=== PATIENT | male | born 1950 | race Caucasian/White ===

== ENCOUNTER → 2016-09-16 | Outpatient (CLI) | payer MEDICARE, BC, SELFPAY | PROVIDERS: Visit Provider Internal Medicine | DX: N39.0 Urinary tract infection, site not specified (principal); N40.0 Benign prostatic hyperplasia without lower urinary tract symptoms | CPT/HCPCS: 87086; 87088; 87186 ==

== ENCOUNTER 2018-01-05 10:50 | Outpatient (CLI) | payer MEDICARE, OTHER, SELFPAY ==
[2018-01-05 12:05] VITALS: BP 127/77; PULSE 95; RESP 18; TEMP 36.5; O2SAT 98
== END 2018-01-05 12:21 | disposition home or self-care (01) ==
LOC: INF 10:53
PROVIDERS: PCP Internal Medicine; Visit Provider Internal Medicine
DX: D75.1 Secondary polycythemia (principal)
CPT/HCPCS: 99195

== ENCOUNTER → 2018-08-11 12:53 | Outpatient (CLI) | payer MEDICARE, OTHER, SELFPAY ==
--- NOTE | 2018-08-11 12:57 | CT_ITS ---
CT soft tissue neck wo con INDICATION: ITS.REASON: EDEMA, LT PAROTIS PAIN ORDERING PHYSICIAN: Aneudy Montelongo PATIENT AGE: 67 years COMPARISON: None TECHNIQUE: Axial images are obtained without contrast. Sagittal and coronal reformatted images are reviewed as well. All CT scans at the facility use one or more dose reduction, viz: automated exposure control, ma/kV adjustment per patient size (including targeted exams where dose is matched to indication, i.e. head), or iterative reconstruction technique. FINDINGS: A BB is placed over the area of pain and tenderness in the left neck.. Study is limited without IV contrast. No obvious parotid mass is evident. BB is placed along the left neck laterally corresponding to an area of slightly prominent fat suggesting a small lipoma. No suspicious soft tissue mass or adenopathy is evident in this region. There are scattered small lymph nodes in the neck but no dominant adenopathy. No abnormal fluid collections. The nasopharynx has an unremarkable appearance. There is slight asymmetric increased density in the left parapharyngeal region of the oropharynx at the level of the uvula. This is of questioned clinical significance. The glottic and epiglottic region and subglottic region have an unremarkable appearance. There is prominence of the isthmus of the thyroid gland with a nodular lesion involving the central aspect of the isthmus at 16 mm. Ultrasound suggested for further evaluation. There are postsurgical changes of the cervical spine with prior anterior cervical disc fusion at C4 C5 C6 and C7 with good alignment. IMPRESSION: 1. No obvious parotid mass. 2. A BB is placed along the left side of the neck at the area of pain and tenderness. There is slight increased prominence of the fat in this region suggesting lipoma. 3. 16 mm nodule obvious mass of the thyroid gland. Recommend ultrasound for further evaluation
== END ==
PROVIDERS: PCP Internal Medicine; Visit Provider Internal Medicine
DX: R22.1 Localized swelling, mass and lump, neck (principal)
CPT/HCPCS: 70490

== ENCOUNTER → 2018-09-07 12:56 | Outpatient (CLI) | payer MEDICARE, OTHER, SELFPAY ==
--- NOTE | 2018-09-07 12:59 | US_ITS ---
US thyroid HISTORY: ITS.REASON: THYROID NODULE ORDERING PHYSICIAN: Aneudy Montelongo PATIENT AGE: 67 years Comparison: None FINDINGS: The right lobe is 4.6 x 1.7 x 2.2 cm. A 6 mm isoechoic nodule present in the upper pole on the right. The left lobe is 4.5 x 1.8 x 1.7 cm. There is a 7 mm isoechoic nodule in the upper pole. The isthmus is thickened at 6 mm however, no definite isthmus nodules demonstrated. IMPRESSION: Enlarged thyroid gland with small bilateral nodules probably benign. Six-month follow-up may confirm stability
== END ==
PROVIDERS: PCP Internal Medicine; Visit Provider Internal Medicine
DX: E04.1 Nontoxic single thyroid nodule (principal)
CPT/HCPCS: 76536

== ENCOUNTER → 2019-11-14 08:45 | Outpatient (CLI) | payer MEDICARE, OTHER, SELFPAY ==
[2019-11-14 11:10] LABS: Coronavirus 19 IgG Antibody Negative (Negative); Coronavirus 19 IgM Antibody Negative (Negative)
== END ==
PROVIDERS: Visit Provider Surgery
DX: Z20.828 Contact with and (suspected) exposure to other viral communicable diseases (principal)
CPT/HCPCS: 36415; 86328

== ENCOUNTER 2019-11-15 09:33 | Day surgery (SDC) | payer MEDICARE, OTHER, SELFPAY ==
[2019-11-10 14:24] VITALS: BMI 35.7
[2019-11-15] VITALS (7 sets, daily range): BP systolic 99–137; BP diastolic 63–90; PULSE 73–97; RESP 16–18; TEMP 36.2–36.6; O2SAT 90–97
--- NOTE | 2019-11-15 10:51 | HMH.ANESCL ---
[facility] Anesthesia Checklist - Patient Identification Patient Identification: Arm Band, Verbal (Name & ) - Structural Data Admitted From: Home Planned Operative Procedure/s: colon Consent for Planned Operative Procedure(s) Verified: Yes Verified Documents: History and Physical - NPO Status Verified Time NPO: 00:00 - Additional verifications Patient : No Anesthesia Reactions: No Hx Blood Transfusions: No Blood Transfusion Reaction: No Cephalosporin Allergy: No Previous Colonoscopy: Yes - Cardiovascular Assessment Heart Sounds: S1 & S2 Pulse Strength: Baseline Pulse Rhythm: Regular Peripheral Edema: No - Airway Assessment C-Spine Mobility Assessed: Yes TMJ Mobility Assessed: Yes Dentition: Partials - Neurological Assessment Level of Consciousness: Awake, Alert, Appropriate Hx Seizures: No Numbness or tingling in extremities: No - Anesthesia Plan Anesthesia Risk discussed: Yes Anesthesia Plan: Verified ASA Class: II Anesthesia Type: MAC [facility] History I have reviewed the patient's past medical history: Yes Medical History: Reports:: Hypertension, Kidney Stones, Renal Disease Denies:: Cancer, Diabetes Mellitus Type 1, Diabetes Mellitus Type 2, Internal Pacemaker, Lung Disease, MRSA, Seizures *Have you ever received a pneumonia vaccine?: Yes *Have you received a flu vaccine this season?: Yes Other Medical History: Reports: Other Anesthesia experience/problems:: none Other Surgeries: Yes: Colonoscopy, Other. No: Pacemaker Amputation: No Fractures: No - *Social History Last grade of school completed: High school graduate Smoking Status: Former smoker Tobacco Type: cigarettes #Yrs smoked (if former smoker): 40 Alcohol Intake: never Alcohol Intake Frequency:: holidays/special occasions only Substance Use Type: denies use *Occupational Status:: retired Housing: house Household Members: spouse *Travel in the last 8 weeks: None Family Hx:: Unable to obtain
--- NOTE | 2019-11-15 11:51 | HMH.SCOPE ---
- Procedure: Date: 11/15/19 Patient Date of :: 1950 Procedure Performed:: Total colonoscopy with polypectomy by biopsy, polypectomy via snare, and colon biopsies Indications:: Patient presents for follow-up colonoscopy. He is a 69-year-old male. He has a very strong family history of colon cancer with multiple siblings having colon cancer as well as several maternal aunts. He states that his mother had colon cancer and he has 4 sisters who had colon cancer. Also, apparently, he had a brother with liver cancer. He has prior adenomatous polyps on previous colonoscopies. I had performed colonoscopy on him in January 2018. He did have a tubular adenoma in the sigmoid colon. There was some subtle irregular nodularity within the cecum and this was biopsied and this actually returned as sessile serrated adenoma. Repeat colonoscopy in January 2019 revealed at least a couple of sessile serrated adenomas including 1 in the cecum and ascending colon as well as 5 tubular adenomas. He also was found to have some anal stenosis. He has had some fecal urgency. Due to the extremely strong family history of colon cancer with early interval development of multiple precancerous polyps I had planned for follow-up colonoscopy 6 months after his last colonoscopy. Performing Provider:: Anton Evans MD Referring Provider:: None Sedation:: MAC sedation Procedure:: Patient was taken to endoscopy procedure room. He was positioned in a lateral decubitus position. Adequate intravenous sedation was achieved. Digital examination was performed which revealed no appreciable anal stenosis. Variable stiffness Olympus colonoscope was inserted via the anus. It was advanced to the cecum with some minor difficulty due to floppiness and tortuosity of the sigmoid colon. Ileocecal valve and appendiceal orifice were clearly identified. There is some minor mucosal nodularity within the appendiceal orifice and a couple cold biopsies were obtained. Colonoscope was withdrawn through the colon with careful surveillance. There was diminutive polyp in the proximal transverse colon removed with cold biopsy forceps. In the ascending colon there were a couple of small polyps removed with cold biopsy forceps. In the transverse colon there were multiple nodules consistent with lymphoid nodules. Biopsies were obtained. In the descending colon there was a polyp removed with cold cutting snare. Proximal sigmoid revealed a polyp removed with biopsy forceps. In the rectum there was possible flat sessile polyp which was initially biopsied and then removed with cold cutting snare. Retroflexion within the rectum revealed no evidence of any pathologic internal hemorrhoids. Colonoscope was withdrawn. Findings:: Anal stenosis Appendiceal mucosal nodularity Proximal transverse colon polyp removed with cold biopsy Ascending colon polyp x2 removed with cold biopsy Transverse colon nodularity consistent with lymphoid nodules biopsied Descending colon polyp removed with cold cutting snare Proximal sigmoid polyp removed with biopsy Probable rectal polyp removed with biopsy followed by cold cutting snare Recommendations:: Pending the pathology likely repeat colonoscopy 1 year. However, if the transverse colon biopsies of the nodularity, presumed to be lymphoid nodules, or if the appendiceal lesions are adenomatous may require earlier colonoscopy. Complications:: None immediately apparent Estimated blood obtained (mL): 2
== END 2019-11-15 12:35 | disposition home or self-care (01) ==
LOC: OUTP 09:35
PROVIDERS: PCP Internal Medicine; Visit Provider Surgery
PROC: 0DJD8ZZ Inspection of Lower Intestinal Tract, Via Natural or Artificial Opening Endoscopic (ICD-10-PCS; CPT 45378; principal; 2019-11-15 10:30)
DX: Z12.11 Encounter for screening for malignant neoplasm of colon (principal); K62.4 Stenosis of anus and rectum; K63.5 Polyp of colon; K63.89 Other specified diseases of intestine; Z80.0 Family history of malignant neoplasm of digestive organs; Z86.010 Personal history of colon polyps; Z87.19 Personal history of other diseases of the digestive system; I10 Essential (primary) hypertension; N28.9 Disorder of kidney and ureter, unspecified; Z87.442 Personal history of urinary calculi; Z79.899 Other long term (current) drug therapy
CPT/HCPCS: 45380; 45385; 88305

== ENCOUNTER → 2020-07-26 09:21 | Outpatient (CLI) | payer MEDICARE, OTHER, SELFPAY ==
[2020-07-26 09:33] LABS: Adenovirus F 40/41, stool Not Detected (NotDetected); Astrovirus Not Detected (NotDetected); Campylobacter Not Detected (NotDetected); Clostridium Difficile A/B, PCR Not Detected (NotDetected); Cryptosporidium Not Detected (NotDetected); Cyclospora Cayetanesis Not Detected (NotDetected); Entamoeba histolytica Not Detected (NotDetected); Enteroaggregative E coli Not Detected (NotDetected); Enteropathogenic E coli Not Detected (NotDetected); Enterotoxigenic E coli Not Detected (NotDetected); Giardia lamblia Not Detected (NotDetected); Norovirus Not Detected (NotDetected); Plesimonas Shigalloides, PCR Not Detected (NotDetected); Rotavirus A Not Detected (NotDetected); Salmonella, PCR Not Detected (NotDetected); Sapovirus Not Detected (NotDetected); Shiga-like toxin E coli Not Detected (NotDetected); Shigella Enterovasive E coli Not Detected (NotDetected); Vibrio Cholerae Not Detected (NotDetected); Vibrio, PCR Not Detected (NotDetected); Yersinia Entercolitica, PCR Not Detected (NotDetected)
== END ==
PROVIDERS: Visit Provider Internal Medicine
DX: R19.7 Diarrhea, unspecified (principal)
CPT/HCPCS: 87205; 87506

== ENCOUNTER → 2020-10-30 16:06 | Outpatient (POV) | payer MEDICARE, OTHER, SELFPAY | PROVIDERS: Visit Provider Dermatology | DX: Z00.00 Encounter for general adult medical examination without abnormal findings (principal) ==

== ENCOUNTER → 2021-01-30 15:15 | Outpatient (CLI) | payer MEDICARE, OTHER, SELFPAY ==
[2021-01-30 15:55] LABS: Basophils # 0.1 K/mm3 (0-0.2); Basophils % 1.2 % (0.1-2.0); Eosinophils # 0.3 K/mm3 (0.0-0.4); Eosinophils % 4.3 % (0.1-12.0); Hematocrit 52.2 % (42.0-52.0); Hemoglobin 17.2 g/dL (14.1-18.0); Lymphocytes # 1.8 K/mm3 (0.7-4.5); Lymphocytes % 28.5 % (10-50); Mean Corpuscular Hemoglobin 30.5 pg (27.0-31.2); Mean Corpuscular Volume 92.4 fl (80-94); Mean Platelet Volume 9.8 fl (7.4-10.4); Monocytes # 0.6 K/mm3 (0.1-1.0); Monocytes % 8.8 % (1.7-9.3); Neutrophils # 3.6 K/mm3 (1.8-7.8); Neutrophils % 57.1 % (37.0-80.0); Platelet Count 198 K/mm3 (142-424); Red Blood Count 5.66 M/mm3 (4.60-6.20); Red Cell Distribution Width 13.9 % (11.5-17.5); White Blood Count 6.2 K/mm3 (4.8-10.8)
[2021-01-30 16:00] LABS: Chloride 105 mmol/L (98-107); Potassium 4.6 mmoL/L (3.5-5.1); Sodium 138 mmol/L (136-145)
[2021-01-30 16:02] LABS: Alanine Aminotransferase 36 U/L (12-78); Alkaline Phosphatase 112 U/L (38-126); Aspartate Amino Transferase 43 U/L (17-59); Bilirubin,Total 1.4 mg/dl (0.2-1.3); Blood Urea Nitrogen 27 mg/dl (9-20); Estimated Glomerular Filt Rate 43 ml/min (>60); GFR (African American) 52 ML/MIN (>60)
[2021-01-30 16:03] LABS: Albumin Level 4.1 g/dl (3.5-5.0); Albumin/Globulin Ratio 2.1 (1.1-1.8); Anion Gap 12.6 mEq/L (5-15); Calcium 9.6 mg/dl (8.4-10.2); Carbon Dioxide 25 mmol/L (22.0-30.0); Chol/HDL Ratio 5.3 (1-3.5); Cholesterol 159 mg/dl (140-200); Glucose 102 mg/dl (74-100); HDL Cholesterol 30 mg/dl (40-60); Total Protein,Serum 6.1 g/dl (6.3-8.2); Triglycerides 185 mg/dl (30-150); VLDL Cholesterol 37 mg/dL (0-40)
[2021-01-30 16:14] LABS: Direct LDL Cholesterol 100.53 mg/dL (100-129)
[2021-01-30 16:23] LABS: Uric Acid 4.5 mg/dl (3.5-8.5)
[2021-01-30 16:55] LABS: Prostate Specific Ag Screen 0.7 ng/ml (0.0-4.0)
== END ==
PROVIDERS: Visit Provider Internal Medicine
DX: I10 Essential (primary) hypertension (principal); E78.5 Hyperlipidemia, unspecified; D69.6 Thrombocytopenia, unspecified; M10.9 Gout, unspecified; N40.1 Benign prostatic hyperplasia with lower urinary tract symptoms; Z12.5 Encounter for screening for malignant neoplasm of prostate
CPT/HCPCS: 80053; 80061; 84550; 85025; G0103

== ENCOUNTER → 2021-07-31 13:31 | Outpatient (CLI) | payer MEDICARE, OTHER, SELFPAY ==
[2021-07-31 14:49] LABS: Basophils # 0.2 K/mm3 (0-0.2); Basophils % 2.7 % (0.1-2.0); Eosinophils # 0.4 K/mm3 (0.0-0.4); Eosinophils % 5.8 % (0.1-12.0); Hematocrit 54.8 % (42.0-52.0); Hemoglobin 17.4 g/dL (14.1-18.0); Lymphocytes # 1.6 K/mm3 (0.7-4.5); Lymphocytes % 26.3 % (10-50); Mean Corpuscular HGB Conc 31.7 g/dL (31.8-35.4); Mean Corpuscular Hemoglobin 30.5 pg (27.0-31.2); Mean Corpuscular Volume 96.3 fl (80-94); Mean Platelet Volume 10.3 fl (7.4-10.4); Monocytes # 0.5 K/mm3 (0.1-1.0); Monocytes % 8.5 % (1.7-9.3); Neutrophils # 3.5 K/mm3 (1.8-7.8); Neutrophils % 56.8 % (37.0-80.0); Platelet Count 187 K/mm3 (142-424); Red Cell Distribution Width 14.4 % (11.5-17.5); White Blood Count 6.1 K/mm3 (4.8-10.8)
[2021-07-31 15:30] LABS: Alanine Aminotransferase 34 U/L (12-78); Albumin Level 3.9 g/dl (3.5-5.0); Albumin/Globulin Ratio 1.9 (1.1-1.8); Alkaline Phosphatase 129 U/L (38-126); Anion Gap 15.4 mEq/L (5-15); Aspartate Amino Transferase 36 U/L (17-59); Bilirubin,Total 1.5 mg/dl (0.2-1.3); Blood Urea Nitrogen 28 mg/dl (9-20); Calcium 9.5 mg/dl (8.4-10.2); Carbon Dioxide 22 mmol/L (22.0-30.0); Chloride 106 mmol/L (98-107); Chol/HDL Ratio 6.2 (1-3.5); Cholesterol 160 mg/dl (140-200); Estimated Glomerular Filt Rate 46 ml/min (>60); GFR (African American) 56 ML/MIN (>60); Globulin 2.1 g/dL (1.3-3.2); Glucose 98 mg/dl (74-100); HDL Cholesterol 26 mg/dl (40-60); Potassium 4.4 mmoL/L (3.5-5.1); Sodium 139 mmol/L (136-145); Triglycerides 136 mg/dl (30-150); Uric Acid 4.4 mg/dl (3.5-8.5); VLDL Cholesterol 27 mg/dL (0-40)
[2021-07-31 15:41] LABS: Direct LDL Cholesterol 97.29 mg/dL (100-129)
== END ==
PROVIDERS: PCP Internal Medicine; Visit Provider Internal Medicine
DX: I10 Essential (primary) hypertension (principal); E78.5 Hyperlipidemia, unspecified; D69.6 Thrombocytopenia, unspecified; M10.9 Gout, unspecified; G47.33 Obstructive sleep apnea (adult) (pediatric)
CPT/HCPCS: 80053; 80061; 84550; 85025

== ENCOUNTER → 2022-02-03 13:20 | Outpatient (CLI) | payer MEDICARE, OTHER, SELFPAY ==
[2022-02-03 15:07] LABS: Basophils # 0.1 K/mm3 (0-0.2); Basophils % 1.2 % (0.1-2.0); Eosinophils # 0.2 K/mm3 (0.0-0.4); Eosinophils % 2.7 % (0.1-12.0); Hemoglobin 17.6 g/dL (14.1-18.0); Lymphocytes # 1.7 K/mm3 (0.7-4.5); Lymphocytes % 25.7 % (10-50); Mean Corpuscular HGB Conc 32.6 g/dL (31.8-35.4); Mean Corpuscular Hemoglobin 30.6 pg (27.0-31.2); Mean Platelet Volume 10.4 fl (7.4-10.4); Monocytes # 0.5 K/mm3 (0.1-1.0); Monocytes % 7.1 % (1.7-9.3); Neutrophils # 4.2 K/mm3 (1.8-7.8); Neutrophils % 63.2 % (37.0-80.0); Platelet Count 219 K/mm3 (142-424); Red Blood Count 5.74 M/mm3 (4.60-6.20); Red Cell Distribution Width 13.9 % (11.5-17.5); White Blood Count 6.6 K/mm3 (4.8-10.8)
[2022-02-03 16:47] LABS: Alanine Aminotransferase 26 U/L (12-78); Albumin Level 4.1 g/dl (3.5-5.0); Albumin/Globulin Ratio 2.2 (1.1-1.8); Alkaline Phosphatase 161 U/L (38-126); Anion Gap 12.9 mEq/L (5-15); Aspartate Amino Transferase 29 U/L (17-59); Bilirubin,Total 1.3 mg/dl (0.2-1.3); Blood Urea Nitrogen 28 mg/dl (9-20); Carbon Dioxide 26 mmol/L (22.0-30.0); Chloride 104 mmol/L (98-107); Chol/HDL Ratio 6.2 (1-3.5); Cholesterol 187 mg/dl (140-200); Estimated Glomerular Filt Rate 35 ml/min (>60); GFR (African American) 43 ML/MIN (>60); Globulin 1.9 g/dL (1.3-3.2); Glucose 92 mg/dl (74-100); HDL Cholesterol 30 mg/dl (40-60); Potassium 4.9 mmoL/L (3.5-5.1); Sodium 138 mmol/L (136-145); Triglycerides 157 mg/dl (30-150); Uric Acid 4.8 mg/dl (3.5-8.5); VLDL Cholesterol 31 mg/dL (0-40)
[2022-02-03 16:58] LABS: Direct LDL Cholesterol 121.71 mg/dL (100-129)
[2022-02-03 17:18] LABS: Prostate Specific Ag Screen 0.9 ng/ml (0.0-4.0)
== END ==
PROVIDERS: PCP Internal Medicine; Visit Provider Internal Medicine
DX: I10 Essential (primary) hypertension (principal); E78.5 Hyperlipidemia, unspecified; D69.6 Thrombocytopenia, unspecified; N18.30 Chronic kidney disease, stage 3 unspecified; N40.1 Benign prostatic hyperplasia with lower urinary tract symptoms; Z12.5 Encounter for screening for malignant neoplasm of prostate
CPT/HCPCS: 80053; 80061; 84550; 85025; G0103

== ENCOUNTER → 2022-03-04 14:59 | Outpatient (CLI) | payer MEDICARE, OTHER, SELFPAY ==
--- NOTE | 2022-03-04 15:07 | XR_ITS ---
FINAL REPORT CLINICAL HISTORY: PAIN..no trauma FINDINGS: LEFT KNEE 3 views of the left knee were obtained. There is no acute fracture or dislocation. Visualized joint spaces are normally aligned. Joint spaces are intact. Soft tissues are unremarkable. IMPRESSION: No acute bony abnormality. Reviewed, Interpreted and Dictated by Tatiana Zapien MD Transcribed by Blessing Whitten Authenticated and [facility]
== END ==
PROVIDERS: PCP Internal Medicine; Visit Provider Internal Medicine
DX: M25.562 Pain in left knee (principal)
CPT/HCPCS: 73562

== ENCOUNTER → 2022-04-04 13:14 | Outpatient (CLI) | payer MEDICARE, OTHER, SELFPAY | PROVIDERS: PCP Internal Medicine; Visit Provider Internal Medicine | DX: R71.8 Other abnormality of red blood cells (principal) ==

== ENCOUNTER → 2022-04-08 11:20 | Outpatient (CLI) | payer MEDICARE, OTHER, SELFPAY ==
[2022-04-08 14:12] LABS: Basophils # 0.1 K/mm3 (0-0.2); Basophils % 0.7 % (0.1-2.0); Eosinophils # 0.2 K/mm3 (0.0-0.4); Eosinophils % 2.5 % (0.1-12.0); Hematocrit 54.1 % (42.0-52.0); Hemoglobin 17.2 g/dL (14.1-18.0); Lymphocytes # 1.8 K/mm3 (0.7-4.5); Lymphocytes % 24.2 % (10-50); Mean Corpuscular HGB Conc 31.8 g/dL (31.8-35.4); Mean Corpuscular Hemoglobin 30.2 pg (27.0-31.2); Mean Corpuscular Volume 94.8 fl (80-94); Mean Platelet Volume 9.1 fl (7.4-10.4); Monocytes # 0.6 K/mm3 (0.1-1.0); Neutrophils # 4.7 K/mm3 (1.8-7.8); Neutrophils % 64.6 % (37.0-80.0); Platelet Count 249 K/mm3 (142-424); Red Blood Count 5.71 M/mm3 (4.60-6.20); Red Cell Distribution Width 14.3 % (11.5-17.5); White Blood Count 7.2 K/mm3 (4.8-10.8)
== END ==
PROVIDERS: PCP Internal Medicine; Visit Provider Internal Medicine
DX: R71.8 Other abnormality of red blood cells (principal)
CPT/HCPCS: 85025

== ENCOUNTER 2022-04-11 10:31 | Day surgery (SDC) | payer MEDICARE, OTHER, SELFPAY ==
--- NOTE | 2022-04-11 10:53 | EXP.ANES.CKL ---
[facility] Disclaimer: The information contained in this section may have been updated after the patient was seen, as this information can be updated by other users. Medical History (Updated 04/11/22 @ 11:03 by Reginaldo Schmidt RN) Gout HTN (hypertension) Surgical History (Updated 04/11/22 @ 11:03 by Reginaldo Schmidt RN) H/O cervical spine surgery Family History (Updated 04/11/22 @ 11:04 by Reginaldo Schmidt RN) Other Family history of cancer Family history of heart disease Social History (Updated 04/11/22 @ 11:04 by Reginaldo Schmidt RN) Smoking Status: Former smoker pack-years: 40 alcohol intake: never substance use type: denies use current occupational status: retired Travel in the last 8 weeks: None household members: spouse housing: house caffeine: Yes [facility] Anesthesia Checklist Patient Identification Patient Identification: Arm Band and Verbal (Name & ) Structural Data Admitted From: Home Planned Operative Procedure/s: Colonoscopy Consent for Planned Operative Procedure(s) Verified: Yes NPO Status Verified Time NPO: 00:00 Additional verifications Anesthesia Reactions: No Hx Blood Transfusions: No Blood Transfusion Reaction: No Airway Assessment C-Spine Mobility Assessed: Yes TMJ Mobility Assessed: Yes Dentition: Poor Dentition Neurological Assessment Level of Consciousness: Awake Hx Seizures: No Numbness or tingling in extremities: No Anesthesia Plan Anesthesia Risk discussed: Yes Anesthesia Plan: Verified ASA Class: II Anesthesia Type: MAC
[2022-04-11 11:04] VITALS: BP 139/79; PULSE 98; RESP 18; TEMP 37.1; O2SAT 97; BMI 36.8
[2022-04-11 11:16] VITALS: O2SAT 97
--- NOTE | 2022-04-11 12:00 | HMH.SCOPE ---
Procedure: Date: 04/11/22 Patient Date of :: 1950 Procedure Performed:: Total colonoscopy to terminal ileum with polypectomy using biopsy and snare Indications:: Patient is a 71-year-old male who presents for follow-up colonoscopy. He has a very strong family history of colon cancer with multiple siblings having colon cancer as well as several maternal aunts. His mother had colon cancer and he has 4 sisters who had colon cancer. Patient also previously had stated he had a brother with liver cancer . Previous colonoscopies have been performed. Have done colonoscopies in 2018, 2018, and 2019. He has had previous tubular adenomas and sessile serrated adenomas. Patient also was noted to have anal stenosis. His last colonoscopy was on 11/15/2019. He had lymphoid aggregate and hyperplastic polyp. However, there is also a tubular adenoma in the descending colon. He was noted to have some significant anal stenosis. Patient had previously noted increased stool frequency and some minor incontinence. I had him undergo colorectal surgical evaluation in [place] for this. Patient did see the apparent colorectal surgery. He does not recall the name of the physician. It was recommended he take Imodium. Performing Provider:: Anton Evans MD Referring Provider:: Aneudy Montelongo MD Sedation:: MAC sedation Procedure:: Patient history was obtained and appropriate physical examination was performed. Patient's medications and allergies were reviewed. Informed consent was obtained after explaining the benefits, alternatives, and risks of the procedure including, but not limited to, bleeding, perforation, missed lesions, and adverse reaction to anesthesia medications. Patient was transported to endoscopy procedure room. Patient was connected to monitoring devices. Throughout the procedure the patient's blood pressure, pulse, and oxygen saturations were monitored continuously. Patient identification and planned procedure were verified by the staff. Patient was positioned in lateral decubitus position. Digital anorectal exam was performed. Variable stiffness Olympus colonoscope was inserted and advanced under direct visualization to the cecum. Adequacy of the colonic preparation was noted. The colonoscope was advanced a short distance into the terminal ileum. The colonoscope was then slowly withdrawn while carefully examining the color, texture, anatomy, and integrity of the mucosoa circumferentially. Within the rectum retroflexion was performed. Colonoscope was then withdrawn. Findings:: He had quite significant anal stenosis. There was some lymphoid tissue within the terminal ileum. Throughout the colon there were findings consistent with multiple lymphoid nodules. This was too numerous to count. He was noted to have tiny likely adenomatous polyps within the appendiceal orifice which were removed with snare and biopsy forceps. In the ascending colon there were several tiny adenomatous appearing polyps removed with combination of biopsy and snare. Total of 3. Sigmoid colon there were a couple diminutive polyps 1 removed with cold snare and 1 biopsy forceps. Retroflexion within the rectum revealed internal hemorrhoids. Colonoscope was withdrawn Impression: Significant anal stenosis Hemorrhoids Tiny adenomatous appearing polyps in the appendiceal lumen Lymphoid aggregate tissue in the terminal ileum Ascending colon polyp x3 Diminutive sigmoid colon polyp x2 Recommendations:: Follow-up on histopathology. Repeat colonoscopy pending pathology. May benefit colorectal evaluation due to anal stenosis Complications:: None immediately apparent Estimated blood obtained (mL): 1
[2022-04-11 12:02] VITALS: BP 109/60; PULSE 87; RESP 16; TEMP 36.9; O2SAT 94
[2022-04-11 12:12] VITALS: BP 104/66; PULSE 87; RESP 16; O2SAT 95
[2022-04-11 12:22] VITALS: BP 115/76; PULSE 78; RESP 16; O2SAT 99
[2022-04-11 12:32] VITALS: BP 136/80; PULSE 80; RESP 18; O2SAT 99
== END 2022-04-11 12:32 | disposition home or self-care (01) ==
PROVIDERS: PCP Internal Medicine; Visit Provider Surgery
PROC: 0DJD8ZZ Inspection of Lower Intestinal Tract, Via Natural or Artificial Opening Endoscopic (ICD-10-PCS; principal; 2022-04-11 11:30)
DX: Z12.11 Encounter for screening for malignant neoplasm of colon (principal); Z80.0 Family history of malignant neoplasm of digestive organs; Z86.010 Personal history of colon polyps; K64.9 Unspecified hemorrhoids; D12.2 Benign neoplasm of ascending colon; D12.5 Benign neoplasm of sigmoid colon
CPT/HCPCS: 45380; 45385; J2704

== ENCOUNTER → 2022-08-06 13:00 | Outpatient (CLI) | payer MEDICARE, OTHER, SELFPAY ==
[2022-08-06 13:41] LABS: Basophils % 0.5 % (0.1-2.0); Eosinophils # 0.2 K/mm3 (0.0-0.4); Eosinophils % 2.2 % (0.1-12.0); Hematocrit 53.8 % (42.0-52.0); Hemoglobin 17.1 g/dL (14.1-18.0); Lymphocytes # 1.9 K/mm3 (0.7-4.5); Lymphocytes % 21.3 % (10-50); Mean Corpuscular HGB Conc 31.8 g/dL (31.8-35.4); Mean Corpuscular Volume 94.4 fl (80-94); Monocytes # 0.7 K/mm3 (0.1-1.0); Monocytes % 7.6 % (1.7-9.3); Neutrophils % 68.4 % (37.0-80.0); Platelet Count 206 K/mm3 (142-424); Red Cell Distribution Width 13.6 % (11.5-17.5); White Blood Count 8.7 K/mm3 (4.8-10.8)
[2022-08-06 14:24] LABS: Alanine Aminotransferase 53 U/L (12-78); Albumin Level 3.9 g/dl (3.5-5.0); Albumin/Globulin Ratio 2.1 (1.1-1.8); Alkaline Phosphatase 175 U/L (38-126); Anion Gap 15.7 mEq/L (5-15); Aspartate Amino Transferase 47 U/L (17-59); Blood Urea Nitrogen 27 mg/dl (9-20); Calcium 9.6 mg/dl (8.4-10.2); Carbon Dioxide 25 mmol/L (22.0-30.0); Chloride 102 mmol/L (98-107); Chol/HDL Ratio 3.8 (1-3.5); Cholesterol 119 mg/dl (140-200); Estimated Glomerular Filt Rate 46 ml/min (>60); GFR (African American) 56 ML/MIN (>60); Globulin 1.9 g/dL (1.3-3.2); Glucose 113 mg/dl (74-100); HDL Cholesterol 31 mg/dl (40-60); Potassium 4.7 mmoL/L (3.5-5.1); Sodium 138 mmol/L (136-145); Total Protein,Serum 5.8 g/dl (6.3-8.2); Triglycerides 144 mg/dl (30-150); Uric Acid 3.7 mg/dl (3.5-8.5); VLDL Cholesterol 29 mg/dL (0-40)
[2022-08-06 14:34] LABS: Direct LDL Cholesterol 67.98 mg/dL (100-129)
== END ==
PROVIDERS: PCP Internal Medicine; Visit Provider Internal Medicine
DX: I10 Essential (primary) hypertension (principal); E78.5 Hyperlipidemia, unspecified; M15.0 Primary generalized (osteo)arthritis; M10.9 Gout, unspecified; N18.9 Chronic kidney disease, unspecified
CPT/HCPCS: 80053; 80061; 84550; 85025

== ENCOUNTER → 2022-08-07 10:38 | Outpatient (CLI) | payer MEDICARE, OTHER, SELFPAY ==
--- NOTE | 2022-08-07 10:47 | XR_ITS ---
FINAL REPORT CLINICAL HISTORY: Left hip pain COMPARISON: None FINDINGS: LEFT HIP: Two views of the left hip demonstrate no acute fracture or dislocation. There are mild degenerative changes. The visualized bony structures are well aligned. No soft tissue abnormality is seen. IMPRESSION: No acute bony abnormality. Reviewed, Interpreted and Dictated by Tatiana Zapien MD Transcribed by Siri Nuñez Authenticated and [facility]
== END ==
PROVIDERS: PCP Internal Medicine; Visit Provider Internal Medicine
DX: M25.552 Pain in left hip (principal)
CPT/HCPCS: 73502

== ENCOUNTER → 2023-02-06 12:19 | Outpatient (CLI) | payer MEDICARE, OTHER, SELFPAY ==
[2023-02-06 13:21] LABS: Eosinophils # 0.3 K/mm3 (0.0-0.4); Lymphocytes # 1.8 K/mm3 (0.7-4.5); Mean Corpuscular HGB Conc 33.2 g/dL (31.8-35.4); Mean Corpuscular Hemoglobin 32.1 pg (27.0-31.2); Mean Corpuscular Volume 96.7 fl (80-94); Red Cell Distribution Width 13.9 % (11.5-17.5)
[2023-02-06 13:47] LABS: Alanine Aminotransferase 54 U/L (12-78); Albumin Level 4.1 g/dl (3.5-5.0); Albumin/Globulin Ratio 2.1 (1.1-1.8); Alkaline Phosphatase 139 U/L (38-126); Anion Gap 10.7 mEq/L (5-15); Aspartate Amino Transferase 50 U/L (17-59); Bilirubin,Total 1.5 mg/dl (0.2-1.3); Blood Urea Nitrogen 28 mg/dl (9-20); Calcium 9.2 mg/dl (8.4-10.2); Carbon Dioxide 26 mmol/L (22.0-30.0); Chloride 103 mmol/L (98-107); Chol/HDL Ratio 4.2 (1-3.5); Cholesterol 122 mg/dl (140-200); Estimated Glomerular Filt Rate 46 ml/min (>60); GFR (African American) 56 ML/MIN (>60); Glucose 113 mg/dl (74-100); HDL Cholesterol 29 mg/dl (40-60); Potassium 4.7 mmoL/L (3.5-5.1); Sodium 135 mmol/L (136-145); Total Protein,Serum 6.1 g/dl (6.3-8.2); Triglycerides 131 mg/dl (30-150); Uric Acid 3.6 mg/dl (3.5-8.5); VLDL Cholesterol 26 mg/dL (0-40)
[2023-02-06 13:58] LABS: Direct LDL Cholesterol 78.48 mg/dL (100-129)
[2023-02-06 14:24] LABS: Basophils # 0.1 K/mm3 (0-0.2); Basophils % 0.7 % (0.1-2.0); Eosinophils % 3.6 % (0.1-12.0); Hematocrit 55.1 % (42.0-52.0); Hemoglobin 18.3 g/dL (14.1-18.0); Lymphocytes % 26.2 % (10-50); Mean Platelet Volume 9.5 fl (7.4-10.4); Monocytes # 0.6 K/mm3 (0.1-1.0); Monocytes % 8.7 % (1.7-9.3); Neutrophils # 4.2 K/mm3 (1.8-7.8); Neutrophils % 60.8 % (37.0-80.0); Platelet Count 135 K/mm3 (142-424)
[2023-02-06 15:42] LABS: Prostate Specific Ag Screen 0.8 ng/ml (0.0-4.0)
== END ==
PROVIDERS: PCP Internal Medicine; Visit Provider Internal Medicine
DX: I10 Essential (primary) hypertension (principal); Z12.5 Encounter for screening for malignant neoplasm of prostate; M10.9 Gout, unspecified; M15.0 Primary generalized (osteo)arthritis; G47.33 Obstructive sleep apnea (adult) (pediatric); Z86.2 Personal history of diseases of the blood and blood-forming organs and certain disorders involving the immune mechanism; N19 Unspecified kidney failure; E78.5 Hyperlipidemia, unspecified; Z87.891 Personal history of nicotine dependence
CPT/HCPCS: 80053; 80061; 84550; 85025; G0103

== ENCOUNTER 2023-05-07 11:20 | Outpatient (CLI) | payer MEDICARE, OTHER, SELFPAY ==
[2023-05-07 11:49] LABS: Basophils % 0.6 % (0.1-2.0); Eosinophils # 0.3 K/mm3 (0.0-0.4); Eosinophils % 3.7 % (0.1-12.0); Hematocrit 55.7 % (42.0-52.0); Hemoglobin 17.5 g/dL (14.1-18.0); Lymphocytes # 1.8 K/mm3 (0.7-4.5); Lymphocytes % 26.7 % (10-50); Mean Corpuscular HGB Conc 31.5 g/dL (31.8-35.4); Mean Corpuscular Hemoglobin 31.4 pg (27.0-31.2); Mean Corpuscular Volume 99.6 fl (80-94); Mean Platelet Volume 7.3 fl (7.4-10.4); Monocytes # 0.5 K/mm3 (0.1-1.0); Monocytes % 7.8 % (1.7-9.3); Neutrophils % 61.1 % (37.0-80.0); Platelet Count 153 K/mm3 (142-424); Red Blood Count 5.59 M/mm3 (4.60-6.20); Red Cell Distribution Width 13.9 % (11.5-17.5); White Blood Count 6.6 K/mm3 (4.8-10.8)
[2023-05-07 13:28] LABS: Folate 6.17 ng/mL
[2023-05-11 12:30] LABS: Vitamin B12 518 pg/mL (239-931)
== END 2023-05-07 23:59 ==
PROVIDERS: PCP Internal Medicine; Visit Provider Internal Medicine Medical Oncology
DX: D69.6 Thrombocytopenia, unspecified (principal)
CPT/HCPCS: 36415; 82607; 82746; 85025

== ENCOUNTER 2023-05-22 06:30 | Day surgery (SDC) | payer MEDICARE, OTHER, SELFPAY ==
[2023-05-22 06:53] VITALS: BP 135/81; PULSE 95; RESP 18; TEMP 36.9; O2SAT 95; BMI 36.1
[2023-05-22] MEDS: LACTATED RINGERS 1000ML 1,000 ML 25 ML IV (07:02)
--- NOTE | 2023-05-22 07:04 | P.PCN_ITS ---
Procedure: Date: 05/22/23 Patient Date of :: 1950 Procedure Performed:: Total colonoscopy to terminal ileum with multiple polypectomy Indications:: Patient is a 72-year-old male who presents for follow-up colonoscopy. He has a very strong family history of colon cancer with multiple siblings, mother, having colon cancer as well as several maternal aunts. Colonoscopy performed in January 2018 revealed a tubular adenoma in the sigmoid colon as well as some subtle irregularity at the cecum which was biopsied and revealed sessile serrated adenoma. He underwent colonoscopy January 2019 which revealed at least a couple of sessile serrated adenomas as well as 5 tubular adenomas. He had colonoscopy in 2019 which revealed some lymphoid aggregate, hyperplastic rectal polyp, and a tubular adenoma in the descending colon. He also had some significant anal stenosis. I had advised for him to see colorectal surgery. Tentative plan was for follow-up colonoscopy 1 year given the strong family hist ory of colon cancer and frequent development of complex adenomatous polyps. He underwent colonoscopy on 04/11/2022. This revealed significant anal stenosis. He had a couple of sessile serrated adenomatous in the periappendiceal location, 3 tubular adenomas in the ascending colon, and 2 tubular adenomas in the sigmoid colon. He has symptoms ongoing of fecal urgency with loose liquid stools. Performing Provider:: Anton Evans MD Referring Provider:: Aneudy Montelongo MD Sedation:: MAC sedation Procedure:: Patient history was obtained and appropriate physical examination was performed. Patient's medications and allergies were reviewed. Informed consent was obtained after explaining the benefits, alternatives, and risks of the procedure including, but not limited to, bleeding, perforation, missed lesions, and adverse reaction to anesthesia medications. Patient was transported to endoscopy procedure room. Patient was connected to monitoring devices. Throughout the procedure the patient's blood pressure, pulse, and oxygen saturations were monitored continuously. Patient identification and planned procedure were verified by the staff. Patient was positioned in lateral decubitus position. Digital anorectal exam was performed. Variable stiffness Olympus colonoscope was inserted and advanced under direct visualization to the cecum. Adequacy of the colonic preparation was noted. The colonoscope was advanced a short distance into the terminal ileum. The colonoscope was then slowly withdrawn while carefully examining the color, texture, anatomy, and integrity of the mucosoa circumferentially. Within the rectum retroflexion was performed. Colonoscope was then withdrawn. . Patient has significant anal stenosis. Colonoscope was advanced to the terminal ileum. There was some particulate liquid stool throughout the colon and irrigation and suctioning was performed. In the periappendiceal location there was some subtle irregularity, possible lymphoid aggregate versus early adenomatous polyps. These were removed with biopsy forceps. In the descending colon there were a couple of subtle polyps removed in a piecemeal fashion using biopsy forceps. In the proximal sigmoid colon there was a small polyp removed with cold snare. In the mid sigmoid there was a small polyp removed with cold snare. . Findings:: Anal stenosis Polyps as noted above Recommendations:: Repeat colonoscopy pending pathology. Likely 1 to 2 years. Complications:: None immediately apparent Estimated blood obtained (mL): 3 Colonoscopy Component Colonoscopy Component Was a colonoscopy performed during today's procedure?: Yes Recommended follow up colonoscopy of at least 10 years?: No If no, follow up colonoscopy recommended in ___ years?: 1-2 Reason for not recommending >/= 10 yr follow-up interval?: See above
[2023-05-22 07:29] VITALS: O2SAT 96
--- NOTE | 2023-05-22 07:48 | P.PNANES_ITS ---
[facility] Disclaimer: The information contained in this section may have been updated after the patient was seen, as this information can be updated by other users. Medical History Gout HTN (hypertension) Surgical History H/O cervical spine surgery Family History Other Family history of cancer Family history of heart disease Social History (Updated 05/22/23 @ 06:54 by Stephanie Jacobo RN) Smoking Status: Former smoker tobacco type: cigarettes alcohol intake: never substance use type: denies use current occupational status: retired Travel in the last 8 weeks: None household members: spouse housing: house caffeine: Yes [facility] Anesthesia Checklist Patient Identification Patient Identification: Arm Band Structural Data Admitted From: Home Planned Operative Procedure/s: Colonoscopy Consent for Planned Operative Procedure(s) Verified: Yes Verified Documents: Surgical Consent and History and Physical NPO Status Verified Time NPO: 00:00 Additional verifications Anesthesia Reactions: No Hx Blood Transfusions: No Blood Transfusion Reaction: No Airway Assessment Mallampati Score:: Class II C-Spine Mobility Assessed: Yes TMJ Mobility Assessed: Yes Dentition: Poor Dentition Neurological Assessment Level of Consciousness: Awake and Alert Anesthesia Plan Anesthesia Risk discussed: Yes Anesthesia Plan: Verified ASA Class: II Anesthesia Type: MAC
[2023-05-22 08:05] VITALS: BP 95/59; PULSE 82; RESP 17; TEMP 36.4; O2SAT 90
[2023-05-22 08:15] VITALS: BP 107/62; PULSE 80; RESP 17; O2SAT 91
[2023-05-22 08:25] VITALS: BP 103/63; PULSE 81; RESP 16; O2SAT 94
[2023-05-22 08:35] VITALS: BP 108/79; PULSE 76; RESP 18; O2SAT 95
== END 2023-05-22 08:42 | disposition home or self-care (01) ==
PROVIDERS: PCP Internal Medicine; Visit Provider Surgery
PROC: 0DJD8ZZ Inspection of Lower Intestinal Tract, Via Natural or Artificial Opening Endoscopic (ICD-10-PCS; CPT 45380; principal; 2023-05-22 07:30)
DX: Z12.11 Encounter for screening for malignant neoplasm of colon (principal); Z80.0 Family history of malignant neoplasm of digestive organs; D12.5 Benign neoplasm of sigmoid colon; D12.4 Benign neoplasm of descending colon; K63.5 Polyp of colon; K62.4 Stenosis of anus and rectum
CPT/HCPCS: 45380; 45385; 88305; J2704

== ENCOUNTER 2023-08-10 16:29 | Outpatient (CLI) | payer MEDICARE, OTHER, SELFPAY ==
[2023-08-10 14:32] LABS: Basophils # 0.1 K/mm3 (0-0.2); Basophils % 0.9 % (0.1-2.0); Eosinophils # 0.2 K/mm3 (0.0-0.4); Eosinophils % 2.7 % (0.1-12.0); Hematocrit 53.4 % (42.0-52.0); Hemoglobin 17.2 g/dL (14.1-18.0); Lymphocytes # 1.6 K/mm3 (0.7-4.5); Lymphocytes % 25.2 % (10-50); Mean Corpuscular HGB Conc 32.1 g/dL (31.8-35.4); Mean Corpuscular Hemoglobin 30.8 pg (27.0-31.2); Mean Corpuscular Volume 95.8 fl (80-94); Mean Platelet Volume 9.4 fl (7.4-10.4); Monocytes # 0.7 K/mm3 (0.1-1.0); Monocytes % 10.5 % (1.7-9.3); Neutrophils # 3.9 K/mm3 (1.8-7.8); Neutrophils % 60.7 % (37.0-80.0); Platelet Count 160 K/mm3 (142-424); Red Blood Count 5.57 M/mm3 (4.60-6.20); Red Cell Distribution Width 14.3 % (11.5-17.5); White Blood Count 6.5 K/mm3 (4.8-10.8)
[2023-08-10 15:14] LABS: Albumin Level 3.9 g/dl (3.5-5.0); Alkaline Phosphatase 179 U/L (38-126); Bilirubin,Total 1.8 mg/dl (0.2-1.3); Calcium 9.7 mg/dl (8.4-10.2); Chloride 104 mmol/L (98-107); Glucose 119 mg/dl (74-100); HDL Cholesterol 27 mg/dl (40-60); Potassium 4.3 mmoL/L (3.5-5.1); Sodium 137 mmol/L (136-145); Total Protein,Serum 5.9 g/dl (6.3-8.2)
[2023-08-10 15:16] LABS: Alanine Aminotransferase 43 U/L (12-78); Anion Gap 18.3 mEq/L (5-15); Aspartate Amino Transferase 36 U/L (17-59); Blood Urea Nitrogen 26 mg/dl (9-20); Carbon Dioxide 19 mmol/L (22.0-30.0); Chol/HDL Ratio 4.8 (1-3.5); Cholesterol 129 mg/dl (140-200); Estimated Glomerular Filt Rate 43 ml/min (>60); GFR (African American) 52 ML/MIN (>60); Triglycerides 158 mg/dl (30-150); VLDL Cholesterol 32 mg/dL (0-40)
[2023-08-10 15:25] LABS: Direct LDL Cholesterol 76.25 mg/dL (100-129)
== END 2023-08-10 23:59 | disposition home or self-care (01) ==
LOC: LAB.DROPOF 16:30
PROVIDERS: PCP Internal Medicine; Visit Provider Internal Medicine
DX: D12.6 Benign neoplasm of colon, unspecified (principal); E78.5 Hyperlipidemia, unspecified; I10 Essential (primary) hypertension; Z87.891 Personal history of nicotine dependence
CPT/HCPCS: 80053; 80061; 85025

== ENCOUNTER 2024-02-08 14:51 | Outpatient (CLI) | payer MEDICARE, OTHER, SELFPAY ==
[2024-02-08 14:45] LABS: Basophils % 0.7 % (0.1-2.0); Eosinophils # 0.2 K/mm3 (0.0-0.4); Eosinophils % 3.3 % (0.1-12.0); Hematocrit 51.8 % (42.0-52.0); Hemoglobin 17.5 g/dL (14.1-18.0); Lymphocytes # 1.6 K/mm3 (0.7-4.5); Lymphocytes % 25.7 % (10-50); Mean Corpuscular HGB Conc 33.7 g/dL (31.8-35.4); Mean Corpuscular Hemoglobin 31.6 pg (27.0-31.2); Mean Corpuscular Volume 93.7 fl (80-94); Monocytes # 0.5 K/mm3 (0.1-1.0); Monocytes % 8.5 % (1.7-9.3); Neutrophils # 3.9 K/mm3 (1.8-7.8); Neutrophils % 61.7 % (37.0-80.0); Platelet Count 158 K/mm3 (142-424); Red Blood Count 5.53 M/mm3 (4.60-6.20); Red Cell Distribution Width 13.9 % (11.5-17.5); White Blood Count 6.3 K/mm3 (4.8-10.8)
[2024-02-08 15:29] LABS: Alanine Aminotransferase 45 U/L (12-78); Albumin Level 4.1 g/dl (3.5-5.0); Albumin/Globulin Ratio 2.4 (1.1-1.8); Alkaline Phosphatase 159 U/L (38-126); Anion Gap 14.2 mEq/L (5-15); Aspartate Amino Transferase 47 U/L (17-59); Bilirubin,Total 1.7 mg/dl (0.2-1.3); Blood Urea Nitrogen 29 mg/dl (9-20); Carbon Dioxide 24 mmol/L (22.0-30.0); Chloride 105 mmol/L (98-107); Chol/HDL Ratio 4.1 (1-3.5); Cholesterol 131 mg/dl (140-200); Estimated Glomerular Filt Rate 40 ml/min (>60); GFR (African American) 48 ML/MIN (>60); Globulin 1.7 g/dL (1.3-3.2); Glucose 115 mg/dl (74-100); HDL Cholesterol 32 mg/dl (40-60); Potassium 4.2 mmoL/L (3.5-5.1); Sodium 139 mmol/L (136-145); Total Protein,Serum 5.8 g/dl (6.3-8.2); Triglycerides 184 mg/dl (30-150); Uric Acid 3.7 mg/dl (3.5-8.5); VLDL Cholesterol 37 mg/dL (0-40)
[2024-02-08 15:39] LABS: Direct LDL Cholesterol 71.99 mg/dL (100-129)
[2024-02-08 16:00] LABS: Prostate Specific Ag Screen 0.8 ng/ml (0.0-4.0)
== END 2024-02-08 23:59 | disposition home or self-care (01) ==
LOC: LAB.DROPOF 14:52
PROVIDERS: PCP Internal Medicine; Visit Provider Internal Medicine
DX: I10 Essential (primary) hypertension (principal); E78.5 Hyperlipidemia, unspecified; N18.30 Chronic kidney disease, stage 3 unspecified; M10.30 Gout due to renal impairment, unspecified site; Z12.5 Encounter for screening for malignant neoplasm of prostate
CPT/HCPCS: 80053; 80061; 84550; 85025; G0103

== ENCOUNTER 2024-04-12 11:46 | Outpatient (CLI) | payer MEDICARE, OTHER, SELFPAY ==
--- NOTE | 2024-04-12 11:52 | XR_ITS ---
FINAL REPORT CLINICAL HISTORY: Persisting cough and congestion COMPARISON: none FINDINGS: No acute pulmonary density is evident. There is no evidence of effusion or other pleural disease. The mediastinum has a normal appearance. The cardiac silhouette is unremarkable. IMPRESSION: Unremarkable chest exam. Reviewed, Interpreted and Dictated by aTtiana Zapien MD Transcribed by Siri Nuñez Authenticated and [facility]
== END 2024-04-12 23:59 | disposition home or self-care (01) ==
LOC: RAD 11:49
PROVIDERS: PCP Internal Medicine; Visit Provider Internal Medicine
DX: R05.8 Other specified cough (principal); J45.991 Cough variant asthma
CPT/HCPCS: 71046

== ENCOUNTER 2024-08-08 15:44 | Outpatient (CLI) | payer MEDICARE, OTHER, SELFPAY ==
[2024-08-08 14:07] LABS: Chloride 105 mmol/L (98-107); Potassium 4.8 mmoL/L (3.5-5.1); Sodium 137 mmol/L (136-145)
[2024-08-08 14:10] LABS: Alanine Aminotransferase 45 U/L (12-78); Albumin/Globulin Ratio 2.1 (1.1-1.8); Alkaline Phosphatase 159 U/L (38-126); Anion Gap 10.8 mEq/L (5-15); Aspartate Amino Transferase 41 U/L (17-59); Bilirubin,Total 1.6 mg/dl (0.2-1.3); Blood Urea Nitrogen 24 mg/dl (9-20); Carbon Dioxide 26 mmol/L (22.0-30.0); Cholesterol 146 mg/dl (140-200); Estimated Glomerular Filt Rate 46 ml/min (>60); GFR (African American) 56 ML/MIN (>60); Globulin 1.9 g/dL (1.3-3.2); Total Protein,Serum 5.9 g/dl (6.3-8.2); Triglycerides 207 mg/dl (30-150); VLDL Cholesterol 41 mg/dL (0-40)
[2024-08-08 14:11] LABS: Calcium 9.6 mg/dl (8.4-10.2); Chol/HDL Ratio 4.9 (1-3.5); Glucose 140 mg/dl (74-100); HDL Cholesterol 30 mg/dl (40-60)
[2024-08-08 14:22] LABS: Direct LDL Cholesterol 71.39 mg/dL (100-129)
[2024-08-08 14:23] LABS: Basophils # 0.1 K/mm3 (0-0.2); Basophils % 0.9 % (0.1-2.0); Eosinophils # 0.2 Kmm3 (0.0-0.4); Eosinophils % 2.7 % (0.1-12.0); Hematocrit 53.5 % (42.0-52.0); Hemoglobin 17.5 g/dL (14.1-18.0); Immature Granulocytes # 0.04 10^3uL; Immature Granulocytes % 0.6 %; Lymphocytes # 1.5 K/mm3 (0.7-4.5); Mean Corpuscular HGB Conc 32.7 g/dL (31.8-35.4); Mean Corpuscular Volume 94.9 fl (80-94); Mean Platelet Volume 10.6 fl (7.4-10.4); Monocytes # 0.7 K/mm3 (0.1-1.0); Monocytes % 9.9 % (1.7-9.3); Neutrophils # 4.6 K/mm3 (1.8-7.8); Neutrophils % 64.9 % (37.0-80.0); Nucleated Red Blood Cells # 0 10^3/uL; Nucleated Red Blood Cells % 0 %; Platelet Count 172 K/mm3 (142-424); Red Blood Count 5.64 M/mm3 (4.60-6.20); Red Cell Distribution Width 13.2 % (11.5-17.5); Red Cell Distribution Width-SD 45.7 fL
--- OUTSIDE RECORDS SUMMARY | 2024-08-08 15:59 | XMS_ITS | Referral Summary ---
Author Organization [employer] Address [address] [place] [address] Care Team Providers [facility] Coordinator Name Role Phone Aneudy Montelongo MD Primary Care Provider [phone] Allergies No known active allergies Social History Tobacco Use Types Packs/Day Years Used Date Smoking Tobacco: Never Assessed Interpersonal Safety Answer Date Record ed Family or friends hurt you Not on file 07/07 Family or friends insult you Not on file 10/2023 Family or friends threaten you Not on file 0 07/08/2023 Family or friends scream or curse at you Not on file 07/08/2023 Food Insecurity Answer Date Recorded Food run out past 12 months Not on file 10/2023 Food did not last past 12 months Not on file 07/08/2023 Employment Answer Date Recorded Help finding and keeping a job Not on file 0 07/08/2023 Family and Community Support Answer Jimenez e Recorded Help with Day to Day Activities Not on file 07/08/2023 Feeling Lonely or Isolated Not on file 07/07 Educational Attainment Answer Date Derek rded Speak language other than Citizen [place] at home Not on file 07/08/2023 Want help with school or training Not on file 07/08/2023 Depression Answer Date Recorded PHQ-2 Risk Not on file 07/08/2023 Disabilities Answer Date Recorded Difficulty concentrating Not on file 024 Difficulty doing errands alone Not on file 0 07/08/2023 Substance Use Answer Date Recorded Used prescription meds for non-medical reasons N ot on file 07/08/2023 Used illegal drugs past 12 months Not on file 07/08/2023 Sex and Gender Information Value Date Recorded Sex Assigned at Not on file Legal Sex Male 1:55 PM CDT Gender Identity Not on file Sexual Orientation Not on file Plan of Treatment Not on file Insurance MEDICARE PART A B [employer] Care Teams Community Center Coordinator Relationship Specialty Start Date End Date Aneudy Montelongo MD [address] [place] [phone] PCP - General General Internal Medicine 07/28/23
--- OUTSIDE RECORDS SUMMARY | 2024-08-08 15:59 | XMS_ITS | Encounter Summary ---
Author Organization [employer] Address [address] [place] [address] Care Team Providers Care Crna Name Role Phone Aneudy Montelongo MD Primary Care Provider [phone] Reason for Referral * Flouroscopy (Routine) - Closed Specialty Diagnoses / Procedures Referred By Contac t Referred To Contact Diagnoses Diarrhea, unspecified type Procedures FL upper gi air contrast with small bowel Reginaldo Kay MD [address] [place], [place] [address]hite [facility] [address] [place] [id number] Phone: tel: fax: Referral ID Status Reason Start Date Expiration Date Visits Re quested Visits Authorized [id number] Closed 07/08/2023 07/07/2024 1 1 Encounter Details Date Type Department Care Team (Late st Contact Info) Description 07/08/2023 Outside Orders [facility] Central Scheduling [address] [place] [address] Reginaldo Kay MD [address] [place], [place] [address] [address] [place], [place] [id number] Diarrhea, unspecified type (Primary Dx) Social History Tobacco Use Types Packs/Day Years [...] Date Derek rded Speak language other than [place] Citizen at home Not on file 07/08/2023 Want [...] on file Sexual Orientation Not on file documented as of this encounter Plan of Treatment Not on file documented as of this encounter Results * FL upper gi air contrast with small bowel (07/28/2023 9:02 AM EDT) Anatomical Region Laterality Modality Abdomen X-Ray 07/28/2023 10:3 1 AM EDT Impressions 07/28/2023 10:33 AM EDT Gastroesophageal reflux. SMALL BOWEL FOLLOW-THROUGH: The livestock slaughterer film is normal. There is no evidence of obstruction. The mucosal fold pattern is normal. The terminal ileum is normal. IMPRESSION: Normal small bowel follow-through. Fluoroscopy exposure time: 2.2 minutes. RADIATION DOSE: DAP: 3247 cGy.cm2 Images reviewed, interpreted, and dictated by Dr. Serg Kathleen. Transcribed by Nory Lynch PA-C. Narrative 07/28/2023 10:33 AM EDT UPPER GI WITH SMALL BOWEL FOLLOW-THROUGH HISTORY: Chronic diarrhea. PROCEDURE: The patient ingested barium. Effervescent crystals were also administered. Spot and overhead films were obtained. Additional barium was administered for a small bowel follow-through. FINDINGS: The esophagus is normal. There is no hiatal hernia. There is gastroesophageal reflux demonstrated. Peristalsis is normal. The rugal fold pattern of the stomach is normal. The duodenal bulb is normal. Procedure Note Trever Kathleen MD - 07/28/2023 UPPER GI WITH SMALL BOWEL FOLLOW-THROUGH HISTORY: Chronic diarrhea. PROCEDURE: The patient ingested barium. Effervescent crystals were also administered. Spot and overhead films were obtained. Additional barium was administered for a small bowel follow-through. FINDINGS: The esophagus is normal. There is no hiatal hernia. There is gastroesophageal reflux demonstrated. Peristalsis is normal. The rugal fold pattern of the stomach is normal. The duodenal bulb is normal. IMPRESSION: Gastroesophageal reflux. SMALL BOWEL FOLLOW-THROUGH: The livestock slaughterer film is normal. There is no evidence of obstruction. The mucosal fold pattern is normal. The terminal ileum is normal. IMPRESSION: Normal small bowel follow-through. Fluoroscopy exposure time: 2.2 minutes. RADIATION DOSE: DAP: 3247 cGy.cm2 Images reviewed, interpreted, and dictated by Dr. Serg Kathleen. Transcribed by Nory Lynch PA-C. Reginaldo Kay MD IMG FLUOROSCOPY ORDERABLES Final Result documented in this encounter Visit Diagnoses Diagnosis Diarrhea, unspecified type- Primary Diarrhea, unspecified type documented in this encounter Care Teams Crna Relationship Specialty Start Date End Date Aneudy Montelongo MD [address] [place] [phone] PCP - General General Internal Medicine 07/28/23 documented as of this encounter
--- OUTSIDE RECORDS SUMMARY | 2024-08-08 15:59 | XMS_ITS | Clinical Summary ---
Author Organization [facility] Address [address] [place] [address] Care Team Providers Care Trim [place] Name Role Phone Aneudy Montelongo MD Primary Care Provider [phone] Allergies No known active allergies Social History [...] Date Derek rded Speak language other than Camb[place]ian at home Not on file 07/08/2023 Want [...] Orientation Not on file Plan of Treatment Health Maintenance Due Date Last Done Comments CT Colonography 1951 Colonoscopy 1951 Colorectal Cancer Screening 1951 FOBT/FIT 1951 Fit-DNA (Cologuard) 1950 Sigmoidoscopy 1950 Depression Screening (12+) 1963 Tobacco Cessation Counseling and Screening (12+) 1963 Hepatitis C Screening 09/09/1969 Shingles Vaccine (Zoster) (1 of 2) 09/09/2001 DTAP/TDAP/TD VACCINES (2 - T d or Tdap) 05/03/2006 05/03/1996 Medicare Initial AWV G0438 08/31/2017 COVID-19 VACCINE (4 - 2023-2 5 season) 2023 01/09/2021, 05/30/2020, 05/02/2020 Falls Risk Screening 03/02/2024 Influenza Vaccine (Season Ended) 2024 01/16/2023, 12/04/2021, 11/23/2020, Additional history exists Respiratory Syncytial Virus (RSV) Adult or (1 - 1-dose 75+ series) 09/09/2026 Pneumococcal 50+ years Completed 11/23/2020, 2019 Insurance MEDICARE PART A B GENERIC COMMERCIAL Care Teams Trim [place] Relationship Specialty Start Date End Date Aneudy Montelongo MD [address] [place] [id number] PCP - General General Internal Medicine 07/28/23
[2024-08-08 17:04] LABS: Uric Acid 3.5 mg/dl (3.5-8.5)
== END 2024-08-08 23:59 | disposition home or self-care (01) ==
LOC: LAB.DROPOF 15:45
PROVIDERS: PCP Internal Medicine; Visit Provider Internal Medicine
DX: E78.5 Hyperlipidemia, unspecified (principal); I12.9 Hypertensive chronic kidney disease with stage 1 through stage 4 chronic kidney disease, or unspecified chronic kidney disease; N18.30 Chronic kidney disease, stage 3 unspecified; M10.30 Gout due to renal impairment, unspecified site
CPT/HCPCS: 80053; 80061; 84550; 85025

== ENCOUNTER 2024-11-30 10:15 | Outpatient (CLI) | payer MEDICARE, OTHER, SELFPAY ==
[2024-11-30 13:48] LABS: Hematocrit 54.8 % (42.0-52.0); Hemoglobin 17.2 g/dL (14.1-18.0); Immature Granulocytes % 0.3 %; Mean Corpuscular HGB Conc 31.4 g/dL (31.8-35.4); Mean Corpuscular Hemoglobin 29.8 pg (27.0-31.2); Mean Corpuscular Volume 94.8 fl (80-94); Nucleated Red Blood Cells % 0 %; Platelet Count 155 K/mm3 (142-424); Red Blood Count 5.78 M/mm3 (4.60-6.20); Red Cell Distribution Width-SD 46.8 fL; White Blood Count 8.9 K/mm3 (4.8-10.8)
[2024-11-30 14:05] LABS: Alanine Aminotransferase 34 U/L (12-78); Albumin Level 3.9 g/dl (3.5-5.0); Albumin/Globulin Ratio 2.3 (1.1-1.8); Alkaline Phosphatase 177 U/L (38-126); Anion Gap 12.3 mEq/L (5-15); Aspartate Amino Transferase 30 U/L (17-59); Bilirubin,Total 1.7 mg/dl (0.2-1.3); Blood Urea Nitrogen 26 mg/dl (9-20); Calcium 9.6 mg/dl (8.4-10.2); Carbon Dioxide 27 mmol/L (22.0-30.0); Chloride 104 mmol/L (98-107); Cholesterol 129 mg/dl (140-200); Creatinine,Serum 1.60 mg/dl (0.66-1.25); Estimated Glomerular Filt Rate 43 ml/min (>60); GFR (African American) 52 ML/MIN (>60); Globulin 1.7 g/dL (1.3-3.2); Glucose 117 mg/dl (74-100); HDL Cholesterol 33 mg/dl (40-60); Potassium 5.3 mmoL/L (3.5-5.1); Sodium 138 mmol/L (136-145); Total Protein,Serum 5.6 g/dl (6.3-8.2); Triglycerides 145 mg/dl (30-150); Uric Acid 3.4 mg/dl (3.5-8.5)
[2024-11-30 15:02] LABS: Hemoglobin A1C 6.8 % (4.0-6.0)
--- OUTSIDE RECORDS SUMMARY | 2024-12-01 10:04 | XMS_ITS | Referral Summary ---
Author Organization [employer] ([place], [place], [place], [place]) Address [address] [place] [address] Care Team Providers Care Property Site Manager Name Role Phone Aneudy Montelongo MD Primary Care Provider [phone] Allergies No known active allergies Social History Tobacco Use Types Packs/Day Years Used Date Smoking Tobacco: Never Assessed Food Insecurity Answer Date Recorded Food run [...] Date Derek rded Speak language other than [place] at home Not on file 07/08/2023 Want help with school or training Not on file 07/08/2023 Substance Use Answer Date Recorded Used prescription meds for non-medical reasons N ot on file 07/08/2023 Used illegal drugs past 12 months Not on file 07/08/2023 Sex and Gender Information Value Date Recorded Sex Assigned at Not on file Legal Sex Male 1:55 PM CDT Gender Identity Not on file Sexual Orientation Not on file Plan of Treatment Not on file [place] [id number] MEDICARE PART A B COMMERCIAL Care Teams Property Site Manager Relationship Specialty Start Date End Date Aneudy Montelongo MD [address] [place] [phone] PCP - General General Internal Medicine 07/28/23
--- OUTSIDE RECORDS SUMMARY | 2024-12-01 10:04 | XMS_ITS | Clinical Summary ---
Author Organization [employer] ([place], [place], [place], [place]) Address [address] [place] [address] Care Team Providers Care Setter Out Name Role Phone Aneudy Montelongo MD Primary Care Provider [phone] Allergies No known active allergies Social History [...] Date Derek rded Speak language other than Icelandic at home Not on file 07/08/2023 Want [...] 05/03/2006 05/03/1996 Medicare Initial AWV [id number] 08/31/2017 Falls Risk Screening 03/02/2024 COVID-19 VACCINE (4 - 2024-2 6 season) 2024 01/09/2021, 05/30/2020, 05/02/2020 Influenza Vaccine (#1) 2024 , 12/04/2021, 11/23/2020, Additional history exists Respiratory Syncytial Virus (RSV) Adult or (1 - 1-dose 75+ series) 09/09/2026 Pneumococcal 50+ years Completed 11/23/2020, 2019 Insurance [facility] [place] [id number] MEDICARE PART A B GENERIC COMMERCIAL Care Teams Setter Out Relationship Specialty Start Date End Date Aneudy Montelongo MD [address] [place] [phone] PCP - General General Internal Medicine 07/28/23
== END 2024-11-30 23:59 ==
LOC: LAB.DROPOF 12-01 10:01
PROVIDERS: PCP Internal Medicine; Visit Provider Internal Medicine
DX: E78.5 Hyperlipidemia, unspecified (principal); I12.9 Hypertensive chronic kidney disease with stage 1 through stage 4 chronic kidney disease, or unspecified chronic kidney disease; N18.30 Chronic kidney disease, stage 3 unspecified; M10.30 Gout due to renal impairment, unspecified site; E11.9 Type 2 diabetes mellitus without complications
CPT/HCPCS: 80053; 80061; 82043; 82570; 83036; 84550; 85025

== ENCOUNTER 2024-12-08 07:58 | Outpatient (CLI) | payer MEDICARE, OTHER, SELFPAY ==
--- NOTE | 2024-12-08 08:00 | US_ITS ---
FINAL REPORT TECHNIQUE: Sonographic images of the right upper quadrant were obtained. CLINICAL HISTORY: Elevated liver enzymes FINDINGS: PANCREAS: Unremarkable. LIVER: Fatty infiltrated. No focal hepatic lesion. Portal vein is patent with normal directional flow. No intrahepatic biliary ductal dilatation. GALLBLADDER: Gallstones. No gallbladder wall thickening or pericholecystic fluid. COMMON DUCT: 3 mm. Normal for age. RIGHT KIDNEY: The right kidney measures 10.4 cm. Multiple hypoechoic lesions in the right kidney, largest measuring 6 cm, likely cysts. FREE FLUID: None. IMPRESSION: Gallstones in the gallbladder. Normal common duct. Fatty liver. Right renal cysts. Reviewed, Interpreted and Dictated by Claudia Hsieh MD Transcribed by Siri Nuñez Authenticated and [facility]
== END 2024-12-08 23:59 | disposition home or self-care (01) ==
LOC: RAD 07:59
PROVIDERS: PCP Internal Medicine; Visit Provider Internal Medicine
DX: K80.20 Calculus of gallbladder without cholecystitis without obstruction (principal); K76.0 Fatty (change of) liver, not elsewhere classified; N28.1 Cyst of kidney, acquired
CPT/HCPCS: 76705